=== PATIENT | male | born 1990 | race African-American/Black ===

== ENCOUNTER 2018-01-19 03:52 | Emergency (ER) | payer MEDICAID ==
[~2018-01-19] VITALS: Ht 175.3 cm; Wt 70.3 kg
[2018-01-19 04:04] VITALS: BP 142/91
[2018-01-19] MEDS ORDERED: Bacitracin Oint UD TOPIC ONE (04:30)
--- NOTE | 2018-01-19 05:47 | Emergency Room Report ---
History of Present Illness General Chief Complaint: Medication Refill Source: Patient Present Illness HPI Patent brought by EMS and [employer] for non-compliance with medication. States at least a week since last taken. No SI or HI. Fell last week and has scrapes to face which are healing without pain or swelling. No fevers, headache, sore throat, cough, chest pain, NVD, dysuria, abdominal pain, joint pain. Smells of alcohol but denies this and drugs. States alcohol spilled on shirt. Allergies: Coded Allergies: No Known Allergies (Unverified , 01/19/18) Patient History Past Medical History: see triage record Social History: Reports: smoking; Denies: alcohol use, drug use Social History Narrative from streets Reviewed Nursing Documentation: PMH: Agreed; PSxH: Agreed Nursing Documentation-PMH Past Medical History: No History, Except For Hx Asthma: Yes History Of Psychiatric Problem: Yes Review of Systems All Other Systems: negative except mentioned in HPI Physical Exam Vital Signs Date Time Temp Pulse Resp B/P (MAP) Pulse Ox O2 Delivery O2 Flow Rate FiO2 01/19/18 03:57 98.2 104 18 142/91 97 Room Air 98.2 Sp02 EP Interpretation: reviewed, normal General Appearance: well appearing, no apparent distress, GCS 15 Head: normocephalic, atraumatic Eyes: bilateral eye normal inspection, bilateral eye PERRL ENT: hearing grossly normal, normal voice, moist mucus membranes Neck: full range of motion, supple Respiratory: lungs clear, normal breath sounds, no respiratory distress, speaking full sentences Cardiovascular #1: regular rate, rhythm Cardiovascular #2: 2+ radial (R) Gastrointestinal: normal inspection, scaphoid Genitourinary: no CVA tenderness Musculoskeletal: back normal, digits/nails normal, gait/station normal, normal range of motion Neurologic: alert, oriented x3, normal gait, grossly normal Psychiatric: mood/affect normal, no suicidal/homicidal ideation Skin: abrasions - L side of face Medical Decision Making Diagnostic Impression: Primary Impression: Schizophrenia Qualified Codes: F20.9 - Schizophrenia, unspecified Additional Impression: Noncompliance ER Course Patient presents with noncompliance of his medications for several days. He is not suicidal at this time. No labs are indicated as the patient has stable vital signs at this time and denies suicidal ideation. The patient will be given Risperdal of 3 mg. Also be provided with a prescription. Patient stable for outpatient observation and treatment. Last Vital Signs Date Time Temp Pulse Resp B/P (MAP) Pulse Ox O2 Delivery O2 Flow Rate FiO2 01/19/18 06:00 98.6 96 16 138/86 97 Room Air 98.2 Status: improved Disposition: HOME, SELF-CARE Condition: Improved Scripts Risperidone* (RISPERDAL*) 1 Mg Tablet 3 MG PO DAILY, #60 TAB 1 Refill Prov: Sage Castro M.D. 01/19/18 Referrals: NOT CHOSEN JULIO/,REFERRING (PCP) Sage Castro M.D. Jan 19, 2018 05:47
[2018-01-19] MEDS ORDERED: RISPERDAL1 MG PO (05:49)
[2018-01-19 06:00] VITALS: BP 138/86
== END 2018-01-19 06:00 | disposition home or self-care (01) ==
LOC: EDBD 03:52 → EMR 04:28
DX: F20.9 Schizophrenia, unspecified (principal); Z91.14 Patient's other noncompliance with medication regimen; Z72.0 Tobacco use
CPT/HCPCS: 99283

== ENCOUNTER 2018-05-16 02:31 | Emergency (ER) | payer MEDICARE, MEDICAID ==
[~2018-05-16] VITALS: Ht 175.3 cm; Wt 72.6 kg
[~2018-05-16 02:31] MED LIST: RISPERDAL1 MG PO
[2018-05-16 03:20] VITALS: BP 131/72
--- NOTE | 2018-05-16 03:20 | NUR ---
[facility] DOWNTIME: For 09/11/2012 From to, the following electronic documentation will be located in the patient handwritten chart, Following patient discharge, paper documentation will be scanned into E[facility] with the remainder of the paper chart. Nursing Documentation Physician orders Medication Administration Records Medication Reconciliation Respiratory Documentation Dietary Documentation Case Management Documentation Hr Manager Documentation
--- NOTE | 2018-05-16 04:29 | Emergency Room Report ---
History of Present Illness General Chief Complaint: Medication refill Source: Patient Present Illness HPI Patient presents with reports that he has been off his Risperdal for the past 2- 3 days He was started to hear voices However denies any suicidal or homicidal thoughts Denies any chest pain or shortness of breath Denies any back or flank pain patient presents with request of medication here and refill for home He reports that he was diagnosed by a psychiatrist as having schizophrenia Allergies: Coded Allergies: No Known Allergies (Unverified , 01/19/18) Patient History Past Medical History: see triage record Pertinent Family History: none Reviewed Nursing Documentation: PMH: Agreed; PSxH: Agreed Nursing Documentation-PMH Hx Asthma: Yes Review of Systems All Other Systems: negative except mentioned in HPI Physical Exam 98% on room air which is normal Sp02 EP Interpretation: reviewed, normal General Appearance: well appearing, no apparent distress Head: normocephalic, atraumatic Eyes: bilateral eye PERRL, bilateral eye EOMI ENT: hearing grossly normal, normal pharynx, TMs + canals normal, uvula midline Neck: full range of motion, supple, no meningismus, no bony tend Respiratory: lungs clear, normal breath sounds, no rhonchi, no respiratory distress, no retraction, no accessory muscle use Cardiovascular #1: normal peripheral pulses, regular rate, rhythm, no edema, no gallop, no JVD, no murmur Gastrointestinal: normal bowel sounds, non tender, soft, no mass, no organomegaly, non-distended, no guarding, no hernia, no pulsatile mass, no rebound Genitourinary: no CVA tenderness Musculoskeletal: normal inspection Neurologic: oriented x3, responsive, topper packer III-XII nml as tested, motor strength/ tone normal, sensory intact Psychiatric: mood/affect normal - Reported auditory hallucinations however denies any suicidal or homicidal thoughts and reports that the voices have significantly improved, Skin: normal color, no rash, warm/dry, palpation normal Lymphatic: normal inspection, no adenopathy Medical Decision Making Diagnostic Impression: Primary Impression: Schizophrenia Additional Impression: Medication refill ER Course Patient has evaluation for psychosocial Well-being and disorder behaviors Patient has appropriate decision making capacity Denies any homicidal or suicidal thoughts, has presented seeking assistance with medications here and requesting refill Patient does not meet any further criteria for acute psychiatric hold or consultation and is stable for close outpatient follow-up Status: improved Disposition: HOME, SELF-CARE Condition: Improved Scripts Risperidone* (RISPERDAL*) 2 Mg Tablet 2 MG ORAL DAILY, #12 TAB 0 Refills Prov: Mitzi Mcfarland DO 05/16/18 Referrals: NOT CHOSEN IPA/MD,REFERRING (PCP) Additional Instructions: Patient is provided with the discharge instructions notified to follow up with primary doctor in the next 2-3 days otherwise return to the er with any worsening symptoms. Please note that this report is being documented using [employer] technology. This can lead to erroneous entry secondary to incorrect interpretation by the dictating instrument. Mitzi Mcfarland DO May 16, 2018 04:29
[2018-05-16] MEDS ORDERED: RISPERDAL2 MG ORAL (04:52)
[2018-05-16 05:14] VITALS: BP 133/70
[2018-05-16 06:05] VITALS: BP 130/73
[2018-05-16 06:06] VITALS: BP 133/70
--- NOTE | 2018-05-16 06:06 | NUR ---
ED Nurse Note: Pt cleared by Health Care Provider for discharge. DC instructions/prescriptions given and explained to pt and verbalized understanding of teachings. All medical devices such as ID band removed. Pt AAO x4, ambulatory and left with all personal belongings. pt is instructed to follow up with primary MD as soon as possible. pt is insturcted to return and seek medical attention if reoccurance of symptoms. pt has left with all DC notes and has been able to teach back all instructions. pt has a physical address on file.
== END 2018-05-16 06:06 | disposition home or self-care (01) ==
LOC: EMR 02:31
DX: Z76.0 Encounter for issue of repeat prescription (principal); F20.9 Schizophrenia, unspecified; J45.909 Unspecified asthma, uncomplicated
CPT/HCPCS: 99283

== ENCOUNTER 2018-06-04 05:26 | Inpatient (IN) | payer MEDICARE, MEDICAID ==
[~2018-06-04] VITALS: Ht 175.3 cm; Wt 71.7 kg
[~2018-06-04 05:26] MED LIST changes: +RISPERDAL2 MG ORAL
[2018-06-04 05:45] VITALS: BP 141/82
[2018-06-04] MEDS ORDERED: LORazepam Inj 2mg/ml 1ml IV ONE ×2 (05:45→07:30)
--- NOTE | 2018-06-04 05:48 | NUR ---
ED Nurse Note: pt was brought in by [facility] from [facility] c/o alcohol withdrawal x 1 day, NM 156, pt stated he ran out of risperidal. Diaphoretic. AO4, cooperative and anxious. NAD.
--- NOTE | 2018-06-04 05:50 | NUR ---
ED Nurse Note: Urine collected; sent down to lab.
[2018-06-04 05:51] LABS: BASOPHILS % (AUTO) 0.9 % (0.0-2.0); EOSINOPHILS % (AUTO) 0.1 % (0.0-3.0); HEMATOCRIT 45.8 % (42.0-52.0); HEMOGLOBIN 15.5 G/DL (14.2-18.0); MEAN CORPUSCULAR VOLUME 91 FL (80-99); PLATELET COUNT 284 K/UL (150-450); RED BLOOD COUNT 5.02 M/UL (4.70-6.10); RED CELL DISTRIBUTION WIDTH 11.7 % (11.6-14.8); WHITE BLOOD COUNT 10.9 K/UL (4.8-10.8)
[2018-06-04 05:56] LABS: ANION GAP 23 mmol/L (5-15); BLOOD UREA NITROGEN 11 mg/dL (7-18); CALCIUM 9.3 MG/DL (8.5-10.1); CARBON DIOXIDE 18 MMOL/L (21-32); CHLORIDE 91 MMOL/L (98-107); CREATININE 1.3 MG/DL (0.55-1.30); POTASSIUM 3.1 MMOL/L (3.5-5.1); SODIUM 132 MMOL/L (136-145)
[2018-06-04 06:01] LABS: ALANINE AMINOTRANSFERASE 32 U/L (12-78); ALBUMIN 3.8 G/DL (3.4-5.0); ALBUMIN/GLOBULIN RATIO 0.8 (1.0-2.7); ALKALINE PHOSPHATASE 182 U/L (46-116); ASPARTATE AMINO TRANSFERASE 42 U/L (15-37); BILIRUBIN,TOTAL 0.6 MG/DL (0.2-1.0)
--- NOTE | 2018-06-04 06:10 | Emergency Room Report ---
History of Present Illness General Chief Complaint: Alcohol Intoxication Source: Patient (Tommie Wolfe MD) Present Illness HPI 27-year-old male presents ED for evaluation. Brought in by EMS. Patient states he is going through withdrawal. States that he drinks alcohol every day. States his last drink was 2 days ago. Is tremulous and tachycardic in triage. Patient also states that he was given unknown drugs by somebody. States that he needed his Risperdal but does not believe it was risperdol. States that he lost his medication 3 weeks ago. Denies chest pain or shortness of breath. Denies nausea or vomiting. Denies any additional drug use. Denies SI or HI. No other aggravating relieving factors. Denies any other associated symptoms (Tommie Wolfe MD) Allergies: Coded Allergies: No Known Allergies (Unverified , 01/19/18) Patient History Past Medical History: psych hx Past Surgical History: none Pertinent Family History: none Social History: Reports: alcohol use, drug use; Denies: smoking Immunizations: UTD Reviewed Nursing Documentation: PMH: Agreed; PSxH: Agreed (Tommie Wolfe MD) Nursing Documentation-PMH Hx Asthma: Yes History Of Psychiatric Problem: Yes - psychosis, hearing voices (Tommie Wolfe MD) Review of Systems All Other Systems: negative except mentioned in HPI (Tommie Wolfe MD) Physical Exam Vital Signs Date Time Temp Pulse Resp B/P (MAP) Pulse Ox O2 Delivery O2 Flow Rate FiO2 06/04/18 05:32 98.1 156 30 141/82 99 Room Air Sp02 EP Interpretation: reviewed, normal General Appearance: alert, GCS 15, non-toxic, mild distress, other - tremulous Head: normocephalic Eyes: bilateral eye normal inspection, bilateral eye PERRL ENT: normal ENT inspection Neck: normal inspection Respiratory: chest non-tender, lungs clear, normal breath sounds, speaking full sentences Cardiovascular #1: tachycardia Gastrointestinal: normal inspection Rectal: deferred Genitourinary: no CVA tenderness Musculoskeletal: normal inspection Neurologic: alert, oriented x3, responsive, motor strength/tone normal, sensory intact, speech normal Psychiatric: no suicidal/homicidal ideation, no delusions, anxious Skin: normal inspection Lymphatic: normal inspection (Tommie Wolfe MD) Medical Decision Making Diagnostic Impression: Primary Impression: Alcohol withdrawal ER Course Please refer to the initial note for the history exam and presentation Patient had been doing better on reevaluation however continues to complain of increased nausea Palpitation sensation after attempts of IV hydration and benzodiazepine patient remains tachycardic Potassium level also low At this time decisions made at the patient requires further inpatient care Further medication is provided and patient admitted to monitored bed Labs Test 06/04/18 05:30 06/04/18 05:48 White Blood Count 10.9 K/UL (4.8-10.8) Red Blood Count 5.02 M/UL (4.70-6.10) Hemoglobin 15.5 G/DL (14.2-18.0) Hematocrit 45.8 % (42.0-52.0) Mean Corpuscular Volume 91 FL (80-99) Mean Corpuscular Hemoglobin 30.8 PG (27.0-31.0) Mean Corpuscular Hemoglobin Concent 33.8 G/DL (32.0-36.0) Red Cell Distribution Width 11.7 % (11.6-14.8) Platelet Count 284 K/UL (150-450) Mean Platelet Volume 9.0 FL (6.5-10.1) Neutrophils (%) (Auto) 73.0 % (45.0-75.0) Lymphocytes (%) (Auto) 17.0 % (20.0-45.0) Monocytes (%) (Auto) 9.0 % (1.0-10.0) Eosinophils (%) (Auto) 0.1 % (0.0-3.0) Basophils (%) (Auto) 0.9 % (0.0-2.0) Sodium Level 132 MMOL/L (136-145) Potassium Level 3.1 MMOL/L (3.5-5.1) Chloride Level 91 MMOL/L (98-107) Carbon Dioxide Level 18 MMOL/L (21-32) Anion Gap 23 mmol/L (5-15) Blood Urea Nitrogen 11 mg/dL (7-18) Creatinine 1.3 MG/DL (0.55-1.30) Estimat Glomerular Filtration Rate > 60 mL/min (>60) Glucose Level 101 MG/DL (74-106) Calcium Level 9.3 MG/DL (8.5-10.1) Total Bilirubin 0.6 MG/DL (0.2-1.0) Aspartate Amino Transf (AST/SGOT) 42 U/L (15-37) Alanine Aminotransferase (ALT/SGPT) 32 U/L (12-78) Alkaline Phosphatase 182 U/L (46-116) Total Protein 8.5 G/DL (6.4-8.2) Albumin 3.8 G/DL (3.4-5.0) Globulin 4.7 g/dL Albumin/Globulin Ratio 0.8 (1.0-2.7) Salicylates Level 5.1 ug/mL (2.8-20) Acetaminophen Level < 2 MCG/ML (10-30) Serum Alcohol 149 mg/dL Urine Opiates Screen Negative (NEGATIVE) Urine Barbiturates Screen Negative (NEGATIVE) Phencyclidine (PCP) Screen Negative (NEGATIVE) Urine Amphetamines Screen Negative (NEGATIVE) Urine Benzodiazepines Screen Negative (NEGATIVE) Urine Cocaine Screen Negative (NEGATIVE) Urine Marijuana (THC) Screen Negative (NEGATIVE) (Mitzi Mcfarland DO) EKG Diagnostic Results Rate: tachycardiac Rhythm: NSR ST Segments: no acute changes ASA given to the pt in ED: No (Tommie Wolfe MD) Rhythm Strip Diag. Results EP Interpretation: yes Rhythm: NSR, no PVC's, no ectopy (Tommie Wolfe MD) EP Interpretation: yes Rate: 110 Rhythm: no PVC's, no ectopy, other - sinus tach (Mitzi Mcfarland DO) Last Vital Signs Date Time Temp Pulse Resp B/P (MAP) Pulse Ox O2 Delivery O2 Flow Rate FiO2 06/04/18 05:45 98.1 135 30 141/82 99 Room Air (Tommie Wolfe MD) Status: improved (Mitzi Mcfarland DO) Disposition: ADMITTED INPATIENT Condition: Serious Referrals: NOT CHOSEN IPA/,REFERRING (PCP) Tommie Wolfe MD Jun 04, 2018 06:10 Mitzi Mcfarland DO Jun 04, 2018 09:16
[2018-06-04 07:00] VITALS: BP 116/64
--- NOTE | 2018-06-04 07:10 | NUR ---
ED Nurse Note: Received patient in bed. alert and awake.
[2018-06-04] MEDS ORDERED: Thiamine 100mg tab ORAL ONE (07:30)
--- NOTE | 2018-06-04 07:47 | NUR ---
ED Nurse Note: Provided sandwich and juice and Dr. Zhang cardona to eat.
--- NOTE | 2018-06-04 08:21 | NUR ---
ED Nurse Note: called [facility] and spoke with RASHEL Navarrete is assigning a nurse still and they're waiting for a bed.
[2018-06-04 09:10] VITALS: BP 134/85
--- NOTE | 2018-06-04 09:23 | NUR ---
ED Nurse Note: patient transferred to [facility], endorsed to Felipa STONE patient transferred with all of his belongings, checked with Felipa STONE and endorsed.
[2018-06-04 10:00] VITALS: BP 144/76
--- NOTE | 2018-06-04 10:02 | NUR ---
NURSE NOTES: left a message to dr bryant regarding patients admission order.awaits callback.
--- NOTE | 2018-06-04 10:45 | Consultation ---
History of Present Illness General Chief Complaint: Alcohol Intoxication Present Illness HPI 27-year-old male with alcohol withdrawal and schizophrenia presents ED for evaluation. Brought in by EMS. Patient states he is going through alcohol withdrawal. the pt stated that he has two bottles of wine a day and beers. the pt endorses anxiety, psychomotor agitation, auditory hallucination and irritable mood. the pt does not endorse si/hi. Allergies: Coded Allergies: No Known Allergies (Unverified , 01/19/18) Medication History Scheduled Risperidone* (Risperdal*), 3 MG PO DAILY Risperidone* (Risperdal*), 2 MG ORAL DAILY Patient History Limited by: medical condition History Provided By: Patient, Medical Record, PMD Healthcare decision maker Resuscitation status Full Code Advanced Directive on File No Past Medical/Surgical History Past Medical/Surgical History: (1) Noncompliance (2) Schizophrenia (3) Alcohol withdrawal Review of Systems Psychiatric: Reports: prior hx, anxiety, depressed feelings, emotional problems , hallucinations Physical Exam General Appearance: alert, moderate distress, agitated Neurologic: oriented x 3, responsive, depressed affect Last 24 Hour Vital Signs Date Time Temp Pulse Resp B/P (MAP) Pulse Ox O2 Delivery O2 Flow Rate FiO2 06/04/18 09:25 Room Air 06/04/18 09:21 99.5 120 19 116/64 99 Room Air 06/04/18 09:10 99.5 120 18 134/85 100 Room Air 06/04/18 07:00 98.1 122 19 116/64 99 Room Air 06/04/18 05:45 98.1 135 30 141/82 99 Room Air 06/04/18 05:45 156 30 Room Air 06/04/18 05:32 98.1 156 30 141/82 99 Room Air Intake and Output 06/03/18 06/04/18 18:59 06:59 Intake Total 1000 ml Balance 1000 ml Intake IV Total 1000 ml # Voids 1 Laboratory Tests Test 06/04/18 05:30 06/04/18 05:48 White Blood Count 10.9 K/UL (4.8-10.8) H Red Blood Count 5.02 M/UL (4.70-6.10) Hemoglobin 15.5 G/DL (14.2-18.0) Hematocrit 45.8 % (42.0-52.0) Mean Corpuscular Volume 91 FL (80-99) Mean Corpuscular Hemoglobin 30.8 PG (27.0-31.0) Mean Corpuscular Hemoglobin Concent 33.8 G/DL (32.0-36.0) Red Cell Distribution Width 11.7 % (11.6-14.8) Platelet Count 284 K/UL (150-450) Mean Platelet Volume 9.0 FL (6.5-10.1) Neutrophils (%) (Auto) 73.0 % (45.0-75.0) Lymphocytes (%) (Auto) 17.0 % (20.0-45.0) L Monocytes (%) (Auto) 9.0 % (1.0-10.0) Eosinophils (%) (Auto) 0.1 % (0.0-3.0) Basophils (%) (Auto) 0.9 % (0.0-2.0) Sodium Level 132 MMOL/L (136-145) L Potassium Level 3.1 MMOL/L (3.5-5.1) L Chloride Level 91 MMOL/L (98-107) L Carbon Dioxide Level 18 MMOL/L (21-32) L Anion Gap 23 mmol/L (5-15) H Blood Urea Nitrogen 11 mg/dL (7-18) Creatinine 1.3 MG/DL (0.55-1.30) Estimat Glomerular Filtration Rate > 60 mL/min (>60) Glucose Level 101 MG/DL (74-106) Calcium Level 9.3 MG/DL (8.5-10.1) Total Bilirubin 0.6 MG/DL (0.2-1.0) Aspartate Amino Transf (AST/SGOT) 42 U/L (15-37) H Alanine Aminotransferase (ALT/SGPT) 32 U/L (12-78) Alkaline Phosphatase 182 U/L (46-116) H Total Protein 8.5 G/DL (6.4-8.2) H Albumin 3.8 G/DL (3.4-5.0) Globulin 4.7 g/dL Albumin/Globulin Ratio 0.8 (1.0-2.7) L Salicylates Level 5.1 ug/mL (2.8-20) Acetaminophen Level < 2 MCG/ML (10-30) L Serum Alcohol 149 mg/dL Urine Opiates Screen Negative (NEGATIVE) Urine Barbiturates Screen Negative (NEGATIVE) Phencyclidine (PCP) Screen Negative (NEGATIVE) Urine Amphetamines Screen Negative (NEGATIVE) Urine Benzodiazepines Screen Negative (NEGATIVE) Urine Cocaine Screen Negative (NEGATIVE) Urine Marijuana (THC) Screen Negative (NEGATIVE) Height (Feet): 5 Height (Inches): 9.00 Weight (Pounds): 160 Medications Current Medications Medications (Trade) Dose Ordered Sig/Riaz Route PRN Reason Start Time Stop Time Status Last Admin Dose Admin Dextrose/ Electrolytes 1,000 ml @ 75 mls/hr [id number] IV 06/04/18 11:00 07/04/18 10:59 Diazepam (Valium) 10 mg EVERY 6 HOURS ORAL 06/04/18 12:00 06/11/18 11:59 Diazepam (Valium) 10 mg Q2H PRN ORAL For Anxiety 06/04/18 10:45 06/11/18 10:44 Famotidine (Pepcid I.v.) 20 mg Q12HR IVP 06/04/18 11:00 07/04/18 10:59 Risperidone (RisperDAL) 2 mg BEDTIME ORAL 06/04/18 21:00 07/04/18 20:59 UNV Assessment/Plan Problem List: (1) Alcohol withdrawal ICD Codes: F10.239 - Alcohol dependence with withdrawal, unspecified SNOMED: 948544704 (2) Schizophrenia ICD Codes: F20.9 - Schizophrenia, unspecified SNOMED: 32940894 Status: not improved Assessment/Plan valium 10mg po qid valium 10mg po q 2hr folate thiamine risperdal Latuda is not on formulary Carmenza Kennedy MD Jun 04, 2018 10:45
[2018-06-04] MEDS: Thiamine 100mg tab ORAL SCH (11:18)
[2018-06-04] MEDS: D5NS w/KCl 40mEq 1000ml 1,000 ML IV SCH (11:40)
--- NOTE | 2018-06-04 13:23 | Cardiology Report ---
APPROVED REPORT EKG Measurement Heart [id number] Sinus tachycardia Otherwise normal ECG
[2018-06-04] MEDS ORDERED: Folic Acid 1 MG, Magnesium Sulfate 2,000 MG, Multivitamin - 12 Injection 10 ML, Thiamin... IV SCH ×5 (14:30)
--- NOTE | 2018-06-04 15:02 | Consultation ---
Consult Note Consult Note asked to manage by Dr Peña Chief Complaint: Alcohol Intoxication HPI 27-year-old male presents ED for evaluation. Brought in by EMS. Patient states he is going through withdrawal. States that he drinks alcohol every day. States his last drink was 2 days ago. Is tremulous and tachycardic in triage. Patient also states that he was given unknown drugs by somebody. States that he needed his Risperdal but does not believe it was risperdol. States that he lost his medication 3 weeks ago. Denies chest pain or shortness of breath. Denies nausea or vomiting. Denies any additional drug use. Denies SI or HI. No other aggravating relieving factors. Denies any other associated symptoms No Known Allergies (Unverified , 01/19/18) Past Medical History: psych hx Hx Asthma: Yes History Of Psychiatric Problem: Yes - psychosis, hearing voices interviewed data reviewed lending consultant's notes , noted ! Assessment/Plan Dehydration Electrolyte inbalance Alcohol Intoxication h/o Psychosis Hydrate Gastric support Per Psych per orders monitor Drake Reyes MD Jun 04, 2018 15:02
--- NOTE | 2018-06-04 17:02 | Cardiac Electrophysiology PN ---
Subjective Subjective [id number] Objective Last 24 Hour Vital Signs Date Time Temp Pulse Resp B/P (MAP) Pulse Ox O2 Delivery O2 Flow Rate FiO2 06/04/18 11:54 108 06/04/18 09:25 Room Air 06/04/18 09:21 99.5 120 19 116/64 99 Room Air 06/04/18 09:10 99.5 120 18 134/85 100 Room Air 06/04/18 07:00 98.1 122 19 116/64 99 Room Air 06/04/18 05:45 98.1 135 30 141/82 99 Room Air 06/04/18 05:45 156 30 Room Air 06/04/18 05:32 98.1 156 30 141/82 99 Room Air Intake and Output 06/03/18 06/04/18 18:59 06:59 Intake Total 1000 ml Balance 1000 ml Intake IV Total 1000 ml # Voids 1 Laboratory Tests Test 06/04/18 05:30 06/04/18 05:48 White Blood Count 10.9 K/UL (4.8-10.8) H Red Blood Count 5.02 M/UL (4.70-6.10) Hemoglobin 15.5 G/DL (14.2-18.0) Hematocrit 45.8 % (42.0-52.0) Mean Corpuscular Volume 91 FL (80-99) Mean Corpuscular Hemoglobin 30.8 PG (27.0-31.0) Mean Corpuscular Hemoglobin Concent 33.8 G/DL (32.0-36.0) Red Cell Distribution Width 11.7 % (11.6-14.8) Platelet Count 284 K/UL (150-450) Mean Platelet Volume 9.0 FL (6.5-10.1) Neutrophils (%) (Auto) 73.0 % (45.0-75.0) Lymphocytes (%) (Auto) 17.0 % (20.0-45.0) L Monocytes (%) (Auto) 9.0 % (1.0-10.0) Eosinophils (%) (Auto) 0.1 % (0.0-3.0) Basophils (%) (Auto) 0.9 % (0.0-2.0) Sodium Level 132 MMOL/L (136-145) L Potassium Level 3.1 MMOL/L (3.5-5.1) L Chloride Level 91 MMOL/L (98-107) L Carbon Dioxide Level 18 MMOL/L (21-32) L Anion Gap 23 mmol/L (5-15) H Blood Urea Nitrogen 11 mg/dL (7-18) Creatinine 1.3 MG/DL (0.55-1.30) Estimat Glomerular Filtration Rate > 60 mL/min (>60) Glucose Level 101 MG/DL (74-106) Calcium Level 9.3 MG/DL (8.5-10.1) Total Bilirubin 0.6 MG/DL (0.2-1.0) Aspartate Amino Transf (AST/SGOT) 42 U/L (15-37) H Alanine Aminotransferase (ALT/SGPT) 32 U/L (12-78) Alkaline Phosphatase 182 U/L (46-116) H Total Protein 8.5 G/DL (6.4-8.2) H Albumin 3.8 G/DL (3.4-5.0) Globulin 4.7 g/dL Albumin/Globulin Ratio 0.8 (1.0-2.7) L Salicylates Level 5.1 ug/mL (2.8-20) Acetaminophen Level < 2 MCG/ML (10-30) L Serum Alcohol 149 mg/dL Urine Opiates Screen Negative (NEGATIVE) Urine Barbiturates Screen Negative (NEGATIVE) Phencyclidine (PCP) Screen Negative (NEGATIVE) Urine Amphetamines Screen Negative (NEGATIVE) Urine Benzodiazepines Screen Negative (NEGATIVE) Urine Cocaine Screen Negative (NEGATIVE) Urine Marijuana (THC) Screen Negative (NEGATIVE) Sage Zeng MD Jun 04, 2018 17:02
--- NOTE | 2018-06-04 17:13 | Consultation ---
History of Present Illness General Date patient seen: Jun 04, 2018 Chief Complaint: Present Illness Allergies: Coded Allergies: No Known Allergies (Unverified , 01/19/18) Medication History Scheduled Risperidone* (Risperdal*), 3 MG PO DAILY Risperidone* (Risperdal*), 2 MG ORAL DAILY Patient History Healthcare decision maker Resuscitation status Full Code Advanced Directive on File No Physical Exam Last 24 Hour Vital Signs Date Time Temp Pulse Resp B/P (MAP) Pulse Ox O2 Delivery O2 Flow Rate FiO2 06/04/18 11:54 108 06/04/18 09:25 Room Air 06/04/18 09:21 99.5 120 19 116/64 99 Room Air 06/04/18 09:10 99.5 120 18 134/85 100 Room Air 06/04/18 07:00 98.1 122 19 116/64 99 Room Air 06/04/18 05:45 98.1 135 30 141/82 99 Room Air 06/04/18 05:45 156 30 Room Air 06/04/18 05:32 98.1 156 30 141/82 99 Room Air Intake and Output 06/03/18 06/04/18 18:59 06:59 Intake Total 1000 ml Balance 1000 ml Intake IV Total 1000 ml # Voids 1 Laboratory Tests Test 06/04/18 05:30 06/04/18 05:48 White Blood Count 10.9 K/UL (4.8-10.8) H Red Blood Count 5.02 M/UL (4.70-6.10) Hemoglobin 15.5 G/DL (14.2-18.0) Hematocrit 45.8 % (42.0-52.0) Mean Corpuscular Volume 91 FL (80-99) Mean Corpuscular Hemoglobin 30.8 PG (27.0-31.0) Mean Corpuscular Hemoglobin Concent 33.8 G/DL (32.0-36.0) Red Cell Distribution Width 11.7 % (11.6-14.8) Platelet Count 284 K/UL (150-450) Mean Platelet Volume 9.0 FL (6.5-10.1) Neutrophils (%) (Auto) 73.0 % (45.0-75.0) Lymphocytes (%) (Auto) 17.0 % (20.0-45.0) L Monocytes (%) (Auto) 9.0 % (1.0-10.0) Eosinophils (%) (Auto) 0.1 % (0.0-3.0) Basophils (%) (Auto) 0.9 % (0.0-2.0) Sodium Level 132 MMOL/L (136-145) L Potassium Level 3.1 MMOL/L (3.5-5.1) L Chloride Level 91 MMOL/L (98-107) L Carbon Dioxide Level 18 MMOL/L (21-32) L Anion Gap 23 mmol/L (5-15) H Blood Urea Nitrogen 11 mg/dL (7-18) Creatinine 1.3 MG/DL (0.55-1.30) Estimat Glomerular Filtration Rate > 60 mL/min (>60) Glucose Level 101 MG/DL (74-106) Calcium Level 9.3 MG/DL (8.5-10.1) Total Bilirubin 0.6 MG/DL (0.2-1.0) Aspartate Amino Transf (AST/SGOT) 42 U/L (15-37) H Alanine Aminotransferase (ALT/SGPT) 32 U/L (12-78) Alkaline Phosphatase 182 U/L (46-116) H Total Protein 8.5 G/DL (6.4-8.2) H Albumin 3.8 G/DL (3.4-5.0) Globulin 4.7 g/dL Albumin/Globulin Ratio 0.8 (1.0-2.7) L Salicylates Level 5.1 ug/mL (2.8-20) Acetaminophen Level < 2 MCG/ML (10-30) L Serum Alcohol 149 mg/dL Urine Opiates Screen Negative (NEGATIVE) Urine Barbiturates Screen Negative (NEGATIVE) Phencyclidine (PCP) Screen Negative (NEGATIVE) Urine Amphetamines Screen Negative (NEGATIVE) Urine Benzodiazepines Screen Negative (NEGATIVE) Urine Cocaine Screen Negative (NEGATIVE) Urine Marijuana (THC) Screen Negative (NEGATIVE) Height (Feet): 5 Height (Inches): 9.00 Weight (Pounds): 160 Medications Current Medications Medications (Trade) Dose Ordered Sig/Riaz Route PRN Reason Start Time Stop Time Status Last Admin Dose Admin Dextrose/ Electrolytes 1,000 ml @ 75 mls/hr [id number] IV 06/04/18 11:00 07/04/18 10:59 06/04/18 11:40 Diazepam (Valium) 10 mg EVERY 6 HOURS ORAL 06/04/18 12:00 06/11/18 11:59 06/04/18 11:17 Diazepam (Valium) 10 mg Q2H PRN ORAL For Anxiety 06/04/18 10:45 06/11/18 10:44 Famotidine (Pepcid) 20 mg BID ORAL 06/04/18 18:00 07/04/18 17:59 Folic Acid (Folate) 1 mg DAILY ORAL 06/04/18 10:45 07/04/18 10:44 06/04/18 11:18 Risperidone (RisperDAL) 2 mg BEDTIME ORAL 06/04/18 21:00 07/04/18 20:59 Thiamine HCl (Vitamin B1) 100 mg DAILY ORAL 06/04/18 10:45 07/04/18 10:44 06/04/18 11:18 Assessment/Plan Assessment/Plan (1) Alcohol abuse (2) Alcohol withdrawal (3) R/o Delirium tremens seen dictated Ashutosh Noyola Jun 04, 2018 17:13
[2018-06-04 18:00] VITALS: BP 139/92
[2018-06-04 19:08] LABS: APPEARANCE,URINE CLEAR; BILIRUBIN, URINE NEGATIVE (NEGATIVE); COLOR,URINE PALE YELLOW; GLUCOSE, URINE (UA) NEGATIVE (NEGATIVE); KETONES,URINE NEGATIVE (NEGATIVE); LEUKOCYTE ESTERASE ,URINE NEGATIVE (NEGATIVE); NITRITE,URINE NEGATIVE (NEGATIVE); PH,URINE 8 (4.5-8.0); PROTEIN,URINE NEGATIVE (NEGATIVE); UROBILINOGEN,URINE NORMAL MG/DL (0.0-1.0)
--- NOTE | 2018-06-04 19:15 | NUR ---
NURSE NOTES: Received patient from BERTHA Leo. Will continue plan of care.
[2018-06-04 20:00] VITALS: BP 144/69
[2018-06-05] VITALS: BP 127/65
[2018-06-05] MEDS: D5NS w/KCl 40mEq 1000ml 1,000 ML IV SCH (00:10)
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
[2018-06-05 04:00] VITALS: BP 141/84
--- NOTE | 2018-06-05 06:31 | Consultation ---
DATE OF CONSULTATION: 06/04/2018 PAIN MANAGEMENT CONSULTATION CONSULTING PHYSICIAN: Thong Henriquez M.D. REFERRING PHYSICIAN: Mitzi You M.D. PHYSICIAN [employer] REPAIRER: Sher Villar CHIEF COMPLAINT: Alcohol withdrawal. HISTORY OF PRESENT ILLNESS: This is a 27-year-old male, who is being seen on the telemetry floor of [facility] for initial pain management consultation. The patient has been admitted under the care of Dr. You due to alcohol withdrawal. He is started on Valium, reports feeling better. He uses risperidone at home due to schizophrenia. PAST MEDICAL HISTORY: Advanced schizophrenia. PAST SURGICAL HISTORY: Right arm surgery. SOCIAL HISTORY: He is alcoholic. ALLERGIES: No known drug allergies. MEDICATIONS: Risperdal. REVIEW OF SYSTEMS: Denies rash, fever, chills, sweating, dizziness, drowsiness, blurred vision, sore throat, or change in weight. No shortness of breath or chest pain. No nausea, vomiting, or blood in the stool or urine. No bowel or bladder incontinence. No dysuria. He is complaining of alcohol withdrawal. PHYSICAL EXAMINATION: GENERAL: Alert, awake, and oriented x3. VITAL SIGNS: Blood pressure 116/65, heart rate 72, oxygen saturation 99%, respiratory rate 19, and temperature is 98 degrees Fahrenheit. HEENT: PERRLA. NECK: Range of motion is full in all directions. No tenderness to paracervical muscles. No adenopathy. LUNGS: Decreased breath sounds bilaterally. HEART: Regular. ABDOMEN: Benign. BACK: Range of motion is full in flexion and extension. EXTREMITIES: Upper and lower extremity range of motion is decreased due to the patient's condition. No cyanosis. No clubbing. Sensory is intact. Reflexes are not obtainable. No adenopathy. ASSESSMENT AND PLAN: This is a 27-year-old male with alcohol abuse and alcohol withdrawal R/O DT. The patient will be continued on current medication regimen of Valium as per Psychiatry. The patient was discussed with Dr. Henriquez and Dr. Henriquez concurred. We will follow the patient. Thank you very much for the courtesy of this consultation. Thong Henriquez M.D. JACQUIE Villar DR: FRANKLIN JOB#: [id number] CC: ANA
--- NOTE | 2018-06-05 07:15 | NUR ---
NURSE NOTES:RECEIVED PT RESTING IN BED COMFORTABLY EATING BREAKFAST.PT AWAKE AND ALERT ORIENTED X4,DENIES CP OR ANY DISCOMFORT.PT RECEIVING IVF,S D5NS WITH 40MEQ @ 75CC/HRS CONNECTED TO H.L ON RTFA INFUSSING WELL .FULL BODY ASSESSMENT DONE.WILL CONT TO MONITOR.
--- NOTE | 2018-06-05 07:27 | NUR ---
HAND-OFF: Report given to BERTHA Fountain.
[2018-06-05 07:48] LABS: BASOPHILS % (AUTO) 0.8 % (0.0-2.0); EOSINOPHILS % (AUTO) 4.4 % (0.0-3.0); HEMATOCRIT 41.4 % (42.0-52.0); HEMOGLOBIN 13.5 G/DL (14.2-18.0); LYMPHOCYTES % (AUTO) 25.2 % (20.0-45.0); MEAN CORPUSCULAR VOLUME 93 FL (80-99); MONOCYTES % (AUTO) 8.1 % (1.0-10.0); NEUTROPHILS % (AUTO) 61.5 % (45.0-75.0); PLATELET COUNT 172 K/UL (150-450); RED BLOOD COUNT 4.45 M/UL (4.70-6.10); RED CELL DISTRIBUTION WIDTH 11.9 % (11.6-14.8); WHITE BLOOD COUNT 5.6 K/UL (4.8-10.8)
[2018-06-05 08:00] VITALS: BP 144/93
[2018-06-05 08:17] LABS: ALANINE AMINOTRANSFERASE 29 U/L (12-78); ALBUMIN 2.8 G/DL (3.4-5.0); ALBUMIN/GLOBULIN RATIO 0.7 (1.0-2.7); ALKALINE PHOSPHATASE 160 U/L (46-116); ANION GAP 8 mmol/L (5-15); ASPARTATE AMINO TRANSFERASE 37 U/L (15-37); BILIRUBIN,TOTAL 0.9 MG/DL (0.2-1.0); BLOOD UREA NITROGEN 9 mg/dL (7-18); CALCIUM 8.6 MG/DL (8.5-10.1); CARBON DIOXIDE 25 MMOL/L (21-32); CHLORIDE 106 MMOL/L (98-107); CHOLESTEROL 150 MG/DL (< 200); CREATININE 0.9 MG/DL (0.55-1.30); HDL CHOLESTEROL 62 MG/DL (40-60); PHOSPHORUS 3.3 MG/DL (2.5-4.9); POTASSIUM 3.6 MMOL/L (3.5-5.1); SODIUM 139 MMOL/L (136-145); TRIGLYCERIDES 230 MG/DL (30-150)
--- NOTE | 2018-06-05 08:54 | General Progress Note ---
Assessment/Plan Assessment/Plan (1) Alcohol abuse (2) Alcohol withdrawal (3) R/o Delirium tremens Patient continued on Valium as per psych D/w Dr. Henriquez and he concurred. Subjective Date patient seen: Jun 05, 2018 Time patient seen: 08:30 - am Constitutional: Reports: no symptoms HEENT: Reports: no symptoms Cardiovascular: Reports: no symptoms Respiratory: Reports: no symptoms Gastrointestinal/Abdominal: Reports: no symptoms Genitourinary: Reports: no symptoms Neurologic/Psychiatric: Reports: no symptoms Endocrine: Reports: no symptoms Hematologic/Lymphatic: Reports: no symptoms Allergies: Coded Allergies: No Known Allergies (Unverified , 01/19/18) Subjective Patient is doing well and showing no signs fo withdrawals. Objective Last 24 Hour Vital Signs Date Time Temp Pulse Resp B/P (MAP) Pulse Ox O2 Delivery O2 Flow Rate FiO2 06/05/18 04:00 97.2 76 20 141/84 (103) 97 06/05/18 03:31 76 06/05/18 00:15 78 06/05/18 00:00 97.5 80 20 127/65 (85) 99 06/04/18 21:00 Room Air 06/04/18 20:29 85 06/04/18 20:00 98.1 82 16 144/69 (94) 99 06/04/18 18:00 98.2 92 20 139/92 (108) 98 06/04/18 16:16 94 06/04/18 11:54 108 06/04/18 10:00 98.1 116 22 144/76 (98) 98 06/04/18 09:25 Room Air 06/04/18 09:21 99.5 120 19 116/64 99 Room Air 06/04/18 09:10 99.5 120 18 134/85 100 Room Air Intake and Output 06/04/18 06/05/18 19:00 07:00 Intake Total 645 ml 1037.5 ml Output Total 300 ml 900 ml Balance 345 ml 137.5 ml Intake Oral 120 ml 150 ml IV Total 525 ml 887.5 ml Output Urine Total 300 ml 900 ml # Voids 2 Laboratory Tests 06/04/18 17:50: Urine Color Pale yellow, Urine Appearance Clear, Urine pH 8, Urine Specific [place] 1.010, Urine Protein Negative, Urine Glucose (UA) Negative, Urine Ketones Negative, Urine Blood Negative, Urine Nitrite Negative, Urine Bilirubin Negative, Urine Urobilinogen Normal, Urine Leukocyte Esterase Negative, Urine RBC 0-2H, Urine WBC 0-2, Urine Squamous Epithelial Cells None, Urine Bacteria Few, Urine Opiates Screen Negative, Urine Barbiturates Screen Negative, Phencyclidine (PCP) Screen Negative, Urine Amphetamines Screen Negative, Urine Benzodiazepines Screen PositiveH, Urine Cocaine Screen Negative, Urine Marijuana (THC) Screen Negative 06/05/18 06:37: White Blood Count 5.6, Red Blood Count 4.45L, Hemoglobin 13.5L, Hematocrit 41.4L , Mean Corpuscular Volume 93, Mean Corpuscular Hemoglobin 30.3, Mean Corpuscular Hemoglobin Concent 32.5, Red Cell Distribution Width 11.9, Platelet Count 172, Mean Platelet Volume 9.6, Neutrophils (%) (Auto) 61.5, Lymphocytes (% ) (Auto) 25.2, Monocytes (%) (Auto) 8.1, Eosinophils (%) (Auto) 4.4H, Basophils (%) (Auto) 0.8, Sodium Level 139, Potassium Level 3.6, Chloride Level 106, Carbon Dioxide Level 25, Anion Gap 8, Blood Urea Nitrogen 9, Creatinine 0.9, Estimat Glomerular Filtration Rate > 60, Glucose Level 84, Hemoglobin A1c 4.8, Uric Acid 4.8, Calcium Level 8.6, Phosphorus Level 3.3, Magnesium Level 1.6L, Total Bilirubin 0.9, Aspartate Amino Transf (AST/SGOT) 37, Alanine Aminotransferase (ALT/SGPT) 29, Alkaline Phosphatase 160H, Troponin I 0.022, C- Reactive Protein, Quantitative < 0.4, Pro-B-Type Natriuretic Peptide 159H, Total Protein 6.8, Albumin 2.8L, Globulin 4.0, Albumin/Globulin Ratio 0.7L, Triglycerides Level 230H, Cholesterol Level 150, LDL Cholesterol 45, HDL Cholesterol 62H, Cholesterol/HDL Ratio 2.4L, Lipase 394H, Vitamin B12 Level 195 , Folate 14.3, Thyroid Stimulating Hormone (TSH) 1.169, Free Thyroxine 0.89 Height (Feet): 5 Height (Inches): 9.00 Weight (Pounds): 158 General Appearance: no apparent distress, alert EENT: PERRL/EOMI, normal ENT inspection Neck: non-tender, normal alignment Cardiovascular: normal rate, regular rhythm Respiratory/Chest: lungs clear, normal breath sounds Abdomen: non tender, soft Extremities: non-tender Edema: no edema noted Arm (L), no edema noted Arm (R), no edema noted Leg (L), no edema noted Leg (R), no edema noted Pedal (L), no edema noted Pedal (R), no edema noted Generalized Neurologic: alert, responsive Skin: normal pigmentation Ashutosh Noyola Jun 05, 2018 08:54
[2018-06-05] MEDS: Thiamine 100mg tab ORAL SCH (09:06)
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
--- NOTE | 2018-06-05 11:06 | General Progress Note ---
Assessment/Plan Problem List: (1) Alcohol withdrawal ICD Codes: F10.239 - Alcohol dependence with withdrawal, unspecified SNOMED: 660770631 (2) Schizophrenia ICD Codes: F20.9 - Schizophrenia, unspecified SNOMED: 72454291 Status: stable Assessment/Plan Valium 10mg po qid Valium 10mg po q 2hr/prn folate thiamine Risperdal [place] is not on formulary Subjective Neurologic/Psychiatric: Reports: anxiety, depressed, emotional problems Allergies: Coded Allergies: No Known Allergies (Unverified , 01/19/18) Objective Last 24 Hour Vital Signs Date Time Temp Pulse Resp B/P (MAP) Pulse Ox O2 Delivery O2 Flow Rate FiO2 06/05/18 04:00 97.2 76 20 141/84 (103) 97 06/05/18 03:31 76 06/05/18 00:15 78 06/05/18 00:00 97.5 80 20 127/65 (85) 99 06/04/18 21:00 Room Air 06/04/18 20:29 85 06/04/18 20:00 98.1 82 16 144/69 (94) 99 06/04/18 18:00 98.2 92 20 139/92 (108) 98 06/04/18 16:16 94 06/04/18 11:54 108 Intake and Output 06/04/18 06/05/18 19:00 07:00 Intake Total 645 ml 1037.5 ml Output Total 300 ml 900 ml Balance 345 ml 137.5 ml Intake Oral 120 ml 150 ml IV Total 525 ml 887.5 ml Output Urine Total 300 ml 900 ml # Voids 2 Laboratory Tests 06/04/18 17:50: Urine Color Pale yellow, Urine Appearance Clear, Urine pH 8, Urine Specific [place] 1.010, Urine Protein Negative, Urine Glucose (UA) Negative, Urine Ketones Negative, Urine Blood Negative, Urine Nitrite Negative, Urine Bilirubin Negative, Urine Urobilinogen Normal, Urine Leukocyte Esterase Negative, Urine RBC 0-2H, Urine WBC 0-2, Urine Squamous Epithelial Cells None, Urine Bacteria Few, Urine Opiates Screen Negative, Urine Barbiturates Screen Negative, Phencyclidine (PCP) Screen Negative, Urine Amphetamines Screen Negative, Urine Benzodiazepines Screen PositiveH, Urine Cocaine Screen Negative, Urine Marijuana (THC) Screen Negative 06/05/18 06:37: White Blood Count 5.6, Red Blood Count 4.45L, Hemoglobin 13.5L, Hematocrit 41.4L , Mean Corpuscular Volume 93, Mean Corpuscular Hemoglobin 30.3, Mean Corpuscular Hemoglobin Concent 32.5, Red Cell Distribution Width 11.9, Platelet Count 172, Mean Platelet Volume 9.6, Neutrophils (%) (Auto) 61.5, Lymphocytes (% ) (Auto) 25.2, Monocytes (%) (Auto) 8.1, Eosinophils (%) (Auto) 4.4H, Basophils (%) (Auto) 0.8, Sodium Level 139, Potassium Level 3.6, Chloride Level 106, Carbon Dioxide Level 25, Anion Gap 8, Blood Urea Nitrogen 9, Creatinine 0.9, Estimat Glomerular Filtration Rate > 60, Glucose Level 84, Hemoglobin A1c 4.8, Uric Acid 4.8, Calcium Level 8.6, Phosphorus Level 3.3, Magnesium Level 1.6L, Total Bilirubin 0.9, Aspartate Amino Transf (AST/SGOT) 37, Alanine Aminotransferase (ALT/SGPT) 29, Alkaline Phosphatase 160H, Troponin I 0.022, C- Reactive Protein, Quantitative < 0.4, Pro-B-Type Natriuretic Peptide 159H, Total Protein 6.8, Albumin 2.8L, Globulin 4.0, Albumin/Globulin Ratio 0.7L, Triglycerides Level 230H, Cholesterol Level 150, LDL Cholesterol 45, HDL Cholesterol 62H, Cholesterol/HDL Ratio 2.4L, Lipase 394H, Vitamin B12 Level 195 , Folate 14.3, Thyroid Stimulating Hormone (TSH) 1.169, Free Thyroxine 0.89 Height (Feet): 5 Height (Inches): 9.00 Weight (Pounds): 158 General Appearance: WD/WN, alert, moderate distress Neurologic: alert, oriented x 3, responsive, depressed affect Carmenza Kennedy MD Jun 05, 2018 11:05
[2018-06-05 12:00] VITALS: BP 139/76
--- NOTE | 2018-06-05 13:17 | NUR ---
CASE MANAGEMENT:REVIEW 27YR OLD MALE BIBA FROM STREET [facility]; ALCOHOL INTOXICATION SI: ALCOHOL WITHDRAWAL 99.5 156 30 141/82 99% ON RA WBC+10.9 K-3.1 SERUM ALCOHOL+149 IS: IV ATIVAN X2 1L NS BOLUS THIAMINE PO FOLATE PO :TO TELEMETRY INTERQUAL CRITERIA MET
--- NOTE | 2018-06-05 13:55 | NUR ---
NURSE NOTES:PT VERY DEMANDING TO LEAVE THE HOSPITAL AGAINST MEDICAL ADVICE.PT SIGNED AMA FORM AND REMOVED H.L,STITCHER TAPE CONTROLLED MACHINE ,RN IN CHARGE AND NURSE SUPERBISER AND PLACED A TELEPHONE CALL TO DR LOW AND MADE AWARE AND NOTIFIED.PT EXPLAINED TO STAY BUT HE IS NON-COMPLIANT .PT LEFT THE HOSPITAL ON HIS OWN PLAN OF CARE.
--- NOTE | 2018-06-05 14:33 | Nephrology Progress Note ---
Assessment/Plan Problem List: (1) Dehydration (2) Electrolyte imbalance (3) Schizophrenia Assessment Dehydration Electrolyte inbalance Alcohol Intoxication h/o Psychosis Plan Hydrate done Gastric support Per Psych per orders lytes improved ? DC Subjective ROS Limited/Unobtainable: No Interval Events/Complaints seen at 10 am Objective Objective Last 24 Hour Vital Signs Date Time Temp Pulse Resp B/P (MAP) Pulse Ox O2 Delivery O2 Flow Rate FiO2 06/05/18 12:00 98.3 71 19 139/76 (97) 98 06/05/18 12:00 61 06/05/18 09:00 Room Air 06/05/18 08:00 80 06/05/18 08:00 97.5 84 19 144/93 (110) 97 06/05/18 04:00 97.2 76 20 141/84 (103) 97 06/05/18 03:31 76 06/05/18 00:15 78 06/05/18 00:00 97.5 80 20 127/65 (85) 99 06/04/18 21:00 Room Air 06/04/18 20:29 85 06/04/18 20:00 98.1 82 16 144/69 (94) 99 06/04/18 18:00 98.2 92 20 139/92 (108) 98 06/04/18 16:16 94 Intake and Output 06/04/18 06/05/18 19:00 07:00 Intake Total 645 ml 1037.5 ml Output Total 300 ml 900 ml Balance 345 ml 137.5 ml Intake Oral 120 ml 150 ml IV Total 525 ml 887.5 ml Output Urine Total 300 ml 900 ml # Voids 2 Laboratory Tests 06/04/18 17:50: Urine Color Pale yellow, Urine Appearance Clear, Urine pH 8, Urine Specific [place] 1.010, Urine Protein Negative, Urine Glucose (UA) Negative, Urine Ketones Negative, Urine Blood Negative, Urine Nitrite Negative, Urine Bilirubin Negative, Urine Urobilinogen Normal, Urine Leukocyte Esterase Negative, Urine RBC 0-2H, Urine WBC 0-2, Urine Squamous Epithelial Cells None, Urine Bacteria Few, Urine Opiates Screen Negative, Urine Barbiturates Screen Negative, Phencyclidine (PCP) Screen Negative, Urine Amphetamines Screen Negative, Urine Benzodiazepines Screen PositiveH, Urine Cocaine Screen Negative, Urine Marijuana (THC) Screen Negative 06/05/18 06:37: White Blood Count 5.6, Red Blood Count 4.45L, Hemoglobin 13.5L, Hematocrit 41.4L , Mean Corpuscular Volume 93, Mean Corpuscular Hemoglobin 30.3, Mean Corpuscular Hemoglobin Concent 32.5, Red Cell Distribution Width 11.9, Platelet Count 172, Mean Platelet Volume 9.6, Neutrophils (%) (Auto) 61.5, Lymphocytes (% ) (Auto) 25.2, Monocytes (%) (Auto) 8.1, Eosinophils (%) (Auto) 4.4H, Basophils (%) (Auto) 0.8, Sodium Level 139, Potassium Level 3.6, Chloride Level 106, Carbon Dioxide Level 25, Anion Gap 8, Blood Urea Nitrogen 9, Creatinine 0.9, Estimat Glomerular Filtration Rate > 60, Glucose Level 84, Hemoglobin A1c 4.8, Uric Acid 4.8, Calcium Level 8.6, Phosphorus Level 3.3, Magnesium Level 1.6L, Total Bilirubin 0.9, Aspartate Amino Transf (AST/SGOT) 37, Alanine Aminotransferase (ALT/SGPT) 29, Alkaline Phosphatase 160H, Troponin I 0.022, C- Reactive Protein, Quantitative < 0.4, Pro-B-Type Natriuretic Peptide 159H, Total Protein 6.8, Albumin 2.8L, Globulin 4.0, Albumin/Globulin Ratio 0.7L, Triglycerides Level 230H, Cholesterol Level 150, LDL Cholesterol 45, HDL Cholesterol 62H, Cholesterol/HDL Ratio 2.4L, Lipase 394H, Vitamin B12 Level 195 , Folate 14.3, Thyroid Stimulating Hormone (TSH) 1.169, Free Thyroxine 0.89 Height (Feet): 5 Height (Inches): 9.00 Weight (Pounds): 158 General Appearance: no apparent distress Cardiovascular: normal rate Respiratory/Chest: lungs clear Abdomen: soft Drake Fernandez MD Jun 05, 2018 14:33
--- NOTE | 2018-06-05 15:13 | Cardiology Report ---
APPROVED REPORT EXAM: Two-dimensional and M-mode echocardiogram with Doppler and color Doppler. INDICATION TACHYCARIDA M-Mode DIMENSIONS IVSd1.0 (0.7-1.1cm)Left Atrium (MM)2.4 (1.6-4.0cm) LVDd5.0 (3.5-5.6cm)Aortic Root3.3 (2.0-3.7cm) PWd1.0 (0.7-1.1cm)Aortic Cusp Exc.2.2 (1.5-2.0cm) IVSs0.9 cm LVDs3.6 (2.5-4.0cm) PWs1.4 cm Normal left ventricular chamber size, systolic function and wall motion. Left ventricular ejection fraction estimated to be 60-65 %. No evidence of left ventricular hypertrophy. Small posterior pericardial effusion. All other cardiac chamber sizes are within normal limits. Focal aortic valve sclerosis with adequate cusp excursion. Thickened mitral valve leaflets with normal excursion. Mitral annulus and aortic root calcification. Pulmonic valve not well visualized. Normal tricuspid valve structure. IVC at normal size with physiologic collapse. A color flow and spectral Doppler study was performed and revealed: No aortic regurgitation. Trace mitral regurgitation. Normal left ventricular diastolic function . Mild tricuspid regurgitation. Tricuspid systolic velocities suggests peak right ventricular systolic pressure of 37mmHg,consistent with mild pulmonary hypertension .
--- NOTE | 2018-06-05 15:16 | Cardiology Report ---
APPROVED REPORT EKG Measurement Heart [id number] Sinus rhythm with sinus arrhythmia with occasional premature ventricular complexes Otherwise normal ECG
--- NOTE | 2018-06-05 15:23 | NUR ---
Social Service Note ETHAN unable to assess patient prior to leaving AMA. ETHAN spoke with Az patient's mental health coordinator through [employer] [phone]. Az states patient co-recurring duel diagnosis of mental health disorder and ETOH abuse. Az also stated that patient is not homeless, but has had periods of homelessness due to ETOH abuse with aggression is his family members homes. Az is working with patient in locating a medical substance dependency program. Az will contact patient and is aware patient signed out AMA. Per Az patient is residing in day to day pay room to rent.
--- NOTE | 2018-06-06 04:02 | History and Physical Report ---
DATE OF ADMISSION: 06/04/2018 HISTORY OF PRESENT ILLNESS: The patient came in, admitted for alcohol withdrawal, tachycardia, and hypokalemia. The patient is complaining of alcohol abuse. The patient also left eye due to glaucoma and also has psychosis. The patient denies seizure activity. Denies headache. Denies nausea, vomiting, or diarrhea. Denies abdominal pain. 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 PAST SURGICAL HISTORY: Eye surgery, right shoulder surgery. SOCIAL HISTORY: History of smoking. History of alcohol abuse. Denies drugs abuse. MEDICATIONS: None. FAMILY HISTORY: Noncontributory. REVIEW OF SYSTEMS: HEENT: Denies headaches. RESPIRATORY: Denies shortness of breath. Denies cough. CARDIOVASCULAR: Denies chest pain. Denies orthopnea. GASTROINTESTINAL: Denies nausea, vomiting, or diarrhea. EXTREMITIES: Reports tremors. CENTRAL NERVOUS SYSTEM: No change in vision or speech pattern. PHYSICAL EXAMINATION: VITAL SIGNS: Temperature 97.2, pulse 78, and blood pressure 130/70. HEENT: PERRLA. NECK: Supple. CHEST: Clear to auscultation. CARDIOVASCULAR: Regular rate and rhythm. No murmurs, rubs, or sounds. GASTROINTESTINAL: Soft, nontender, and nondistended. No organomegaly. EXTREMITIES: No edema. Moves all four extremities. ASSESSMENT AND PLAN: Alcohol withdrawal. The patient has no seizures or tremors, has history of psychosis and also hypokalemia. I have asked Dr. Karri Dr. to see the patient for the pain management and also for alcohol withdrawal symptoms as well as for treatment of tachycardia, which most likely due to alcohol. Mitzi You M.D. DR: LUIS JOB#: [id number] CC:
--- NOTE | 2018-06-06 10:08 | Discharge Summary ---
Discharge Summary Discharge Summary _ DATE OF ADMISSION: 06/04/2018 DATE OF DISCHARGE: 06/05/2018 CONSULTANTS: Dr. Drake Zeng [facility] HOSPITAL COURSE: Patient is a 27-year-old male, who was brought in to ED via EMS due to alcohol intoxication. Patient admits to drinking alcohol every day. Last alcohol intake was 2 days prior to admission. Patient was tremulous and tachycardic during triad H. He stated he was given unknown drugs by somebody. He stated he needed Risperdal. He lost his medications 3 weeks prior. He denied chest pain or shortness of breath. He denied any nausea or vomiting. Denied any additional drug use. He denied any suicidal or homicidal ideation or intent. On evaluation at ED, patient was tachycardic. Blood work did not show any leukocytosis, hemoglobin and hematocrit were stable. Potassium was 3.1. Urine toxicology screen was negative. She showed sinus tachycardia with no acute changes. He was admitted for withdrawal symptoms. Psychiatric evaluation was done. He was given Valium. He was given folate and thiamine. He was resumed on Risperdal. Latuda is nonformulary at the hospital. He was given IV hydration and gastric support. Kidney function was monitored. He was admitted to telemetry. He was hooked on a cardiac specialist. Tachycardia was sinus possibly from alcohol withdrawal. Thyroid function was normal. He presented with elevated alkaline phosphatase 160 and lipase of 390. Patient did not have any active signs or symptoms of nausea and vomiting. He was given symptomatic treatment. Diet was advanced as tolerated. Full treatment was not carried out as patient left against medical advise. FINAL DIAGNOSES: Alcohol intoxication with alcohol withdrawal symptoms Dehydration Schizophrenia Electrolyte imbalance Tachycardia due to alcohol withdrawal Status post recent right shoulder surgery with estella still present Noncompliance DISPOSITION: Patient left against medical advise. I have been assigned to complete a discharge summary on this account, I was not involved with the patient's management. Vane Delgado NP Jun 06, 2018 10:08
== END 2018-06-05 13:55 | disposition left against medical advice (07) | DRG 894 ==
LOC: EDBD 05:26 → EMR 05:38 → 2E 07:41 → EDBEDREQ 07:51
DX: F10.239 Alcohol dependence with withdrawal, unspecified (principal); E86.0 Dehydration; F10.229 Alcohol dependence with intoxication, unspecified; F20.9 Schizophrenia, unspecified; R00.0 Tachycardia, unspecified; E87.8 Other disorders of electrolyte and fluid balance, not elsewhere classified; E87.6 Hypokalemia; H54.7 Unspecified visual loss; Y90.6 Blood alcohol level of 120-199 mg/100 ml; Z91.19 Patient's noncompliance with other medical treatment and regimen; Z86.73 Personal history of transient ischemic attack (TIA), and cerebral infarction without residual deficits
CPT/HCPCS: 36415; 80053; 80061; 80307; 80329; 81001; 82607; 82746; 83036; 83690; 83735; 83880; 84100; 84439; 84443; 84484; 84550; 85025; 86140; 93005; 93306; 96361; 96374; 96376; 99285; J8499